=== PATIENT | female | born 1960 | race Two or more races ===

== ENCOUNTER 2018-08-15 10:23 | Outpatient (CLI) | payer OTHER | END 2018-08-15 23:59 | disposition home or self-care (01) | LOC: WOU 10:23 | PROVIDERS: ATTEND Podiatrist Foot & Ankle Surgery | DX: G89.18 Other acute postprocedural pain (principal); S86.011D Strain of right Achilles tendon, subsequent encounter; X58.XXXD Exposure to other specified factors, subsequent encounter; R60.0 Localized edema; J45.909 Unspecified asthma, uncomplicated | CPT/HCPCS: A6402; G0463; Z7610 ==